=== PATIENT | female | born 1950 | race African-American/Black ===

== ENCOUNTER 2018-11-04 09:08 | Emergency (ER) | payer OTHER ==
[~2018-11-04] VITALS: Ht 172.7 cm; Wt 67.6 kg
[2018-11-04 09:15] VITALS: Ht 172.7 cm; Wt 67.6 kg
[2018-11-04 10:40] VITALS: BP 124/70
[2018-11-04 10:40] LABS: BASOPHIL % 0.6 % (0-2); RED CELL DISTRIBUTION WIDTH 14.3 % (11.5-14.5)
[2018-11-04 10:42] LABS: PLATELET COUNT 129 x10^3mcL (130-400)
[2018-11-04 10:53] LABS: CALCIUM 8.5 mg/dL (8.5-10.1); CARBON DIOXIDE 33.2 mmol/L (21-32); CHLORIDE SERUM 96 mmol/L (98-107); CREATININE SERUM 0.7 mg/dL (0.6-1.0); GFR1 > 60 mL/min; GLUCOSE SERUM 108 mg/dL (74-106); SODIUM SERUM 135 mmol/L (136-145)
[2018-11-04 10:58] LABS: ALBUMIN 3.7 g/dL (3.4-5.0); ALKALINE PHOSPHATASE 80 U/L (46-116); ALT/SGPT 22 U/L (14-59); AST/SGOT 31 U/L (15-37); BILIRUBIN TOTAL 0.66 mg/dL (0.20-1.00); TOTAL PROTEIN, SERUM 7.6 g/dL (6.4-8.2)
== END 2018-11-04 11:56 | disposition home or self-care (01) ==
LOC: EDBD 09:08 → ED 09:08
PROVIDERS: Emergency Medicine
DX: J44.1 Chronic obstructive pulmonary disease with (acute) exacerbation (principal); J40 Bronchitis, not specified as acute or chronic; I10 Essential (primary) hypertension; I48.91 Unspecified atrial fibrillation
CPT/HCPCS: J2930; J7613; J7644; Q0092

== ENCOUNTER 2019-07-02 23:22 | Inpatient (IN) | payer OTHER ==
[~2019-07-02] VITALS: Ht 170.2 cm; Wt 54.4 kg
[2019-07-02 23:28] VITALS: Ht 170.2 cm; Wt 54.4 kg
--- NOTE | 2019-07-03 00:14 | NUR ---
DR WOODY AT BEDSIDE FOR MSE.
--- NOTE | 2019-07-03 00:21 | NUR ---
PT PRESENTS TO THE ED TODAY WITH C/C OF PALPITATIONS X 4-5 HOURS. PT REPORTS THAT SHE WAS AT HOME WHEN SHE BEGAN FEELING LIKE HER "HEART WAS BEATING REAL HARD." PT DENIES ANY CHEST PAIN OR SOB. WHEEZING AUSCULTATED TO BILATERAL LUNGS. PT IS AWAKE AND ALERT, RESP E/U, SPEAKING IN FULL CLEAR SENTENCES, NAD NOTED.
[2019-07-03 00:50] LABS: PLATELET COUNT 143 x10^3mcL (130-400)
[2019-07-03 00:53] LABS: RED CELL DISTRIBUTION WIDTH 14.8 % (11.5-14.5)
[2019-07-03 01:02] LABS: ALBUMIN 3.7 g/dL (3.4-5.0); ALKALINE PHOSPHATASE 71 U/L (46-116); ALT/SGPT 16 U/L (14-59); AST/SGOT 22 U/L (15-37); BILIRUBIN TOTAL 0.63 mg/dL (0.20-1.00); CALCIUM 8.9 mg/dL (8.5-10.1); CARBON DIOXIDE 32.9 mmol/L (21-32); CHLORIDE SERUM 106 mmol/L (98-107); CREATININE SERUM 0.7 mg/dL (0.6-1.0); GFR1 > 60 mL/min; GLUCOSE SERUM 102 mg/dL (74-106); POTASSIUM SERUM 4.5 mmol/L (3.5-5.1); SODIUM SERUM 145 mmol/L (136-145); TOTAL PROTEIN, SERUM 6.8 g/dL (6.4-8.2)
[2019-07-03 01:07] LABS: BAND NEUTROPHIL 4 % (0-10); MONOCYTE 16 % (0-7); SEGMENTED NEUTROPHILS 14 % (37-75); rbc morphology (normal/abnorm) NORMAL (NORMAL)
[2019-07-03 01:08] LABS: PLATELET MORPHOLOGY PLATELETS NORMAL
--- NOTE | 2019-07-03 02:33 | NUR ---
PT. LAYING ON GURNEY IN POSITION OF COMFORT. BREATHING E/U. NOT IN ANY APPARENT DISTRESS. MEDICATED WITH CARDIZIEM PER E-MAR. 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 CALL LIGHT IN REACH. WILL CONTINUE TO MONITOR
[2019-07-03] MEDS ORDERED: CORE25 (02:49)
[2019-07-03 02:50] LABS: CHOLESTEROL/HDL RATIO 2.7
[2019-07-03] MEDS ORDERED: COUMADIN3 MG (02:50)
[2019-07-03] MEDS ORDERED: VERAPAMIL HCL180 M1 (02:50)
[2019-07-03] MEDS ORDERED: COUMADIN7.5 MG (02:50)
[2019-07-03] MEDS ORDERED: BENAZEPRIL HYDR40 M1 (02:50)
[2019-07-03 02:58] LABS: T3 TOTAL 1.35 ng/mL
[2019-07-03 03:02] LABS: FREE T4 1.43 ng/dL (0.76-1.46); FREE THYROXINE INDEX 3.6 ug/dL (1.4-4.5); T4(THYROXINE) 9.6 ug/dL (4.7-13.3)
--- NOTE | 2019-07-03 03:48 | NUR ---
PT. UP TO RESTROOM TO VOID. GAIT STEADY. CALL LIGHT IN REACH. WILL CONTINUE TO MONITOR
--- NOTE | 2019-07-03 03:53 | NUR ---
REPORT GIVEN TO PARI LESTER FOR FURTHER CARE OF PATIENT.
--- NOTE | 2019-07-03 04:10 | NUR ---
PT. TRANSPORTED TO TELE FLOOR VIA WHEELCHAIR. PARI LESTER AT BEDSIDE AND ASSUMED CARE. PT. AAOX4,TALKING AND RESPONDING APPROPRIATELY, BREATHING E/U. NAD. STABLE AT TIME OF TRANSFER
[2019-07-03 04:11] VITALS: BP 136/81
[2019-07-03 04:23] LABS: UA SPECIFIC GRAVITY <=1.005 (1.005-1.035); microscopic required? YES; urine erythrocyte NEGATIVE (NEGATIVE)
[2019-07-03 04:29] LABS: AMPHETAMINE QUAL UR NONE DETECTED (See below)
--- NOTE | 2019-07-03 04:51 | NUR ---
PEDRO BECK A 69 Y/O FEMALE PATIENT FROM ED VIA ERNEY ACCOMPANIED BY ER STAFFS WITH THE CHEIF COMPLAINTS OF PALPITATION, DENEIS ANY CHEST PAIN. PLACED CPMFORTABLY IN BED. VITAL SIGMS TAKEN AND RECORDED. PLACED ON TELE ^ 14 WITH AFIB AT 77/MIN. SKIN CLEAN AND INTACT. NOTED TO HAVE TRACED PITTING EDEMA ON BLE. WAS GIVEN LASIX 40MG AT ER. AMBULATED TO BATHROOM FOR BLADDER ELIMINATION. KEPT CLEAN AND DRY. CALL LIGHT WITHIN REACH.
--- NOTE | 2019-07-03 06:46 | NUR ---
DENIES ANY PAIN/DISCOMFORT. AMBULATED TO ABTHROOM WITH FAU=IR STEADY GAIT. ALL NEEDS ATTENDED.
--- NOTE | 2019-07-03 07:15 | NUR ---
RECEIVED BEDSIDE REPORT. PATIENT SITTING UP IN BED RESTING COMFORTABLY A/O X4, CLEAR SPEECH, NO NEURO DEFICITS NOTED. TELE # [address], DENIES CHEST PAIN OR PALPITATIONS, ADMITTED FOR AFIB PENDING CONSULT WITH DR. SOTELO. BREATHING EVEN AND UNLABBORED ON ROOM AIR, DENIES SOB, NO DISTRESS NOTED. DENIES ANY PAIN. IV TO LAC H/L INTACT AND PATENT FREE FROM REDNESS AND INFILTRATION. PATIENT IS CALM WITH CARE. INSTRUCTED TO CALL FOR ASSISTANCE IF NEEDED. SAFETY PRECAUTIONS MAINTAINED. WILL MONITOR.
[2019-07-03 08:07] LABS: PLATELET COUNT 160 x10^3mcL (130-400)
[2019-07-03 08:19] LABS: CALCIUM 8.6 mg/dL (8.5-10.1); CARBON DIOXIDE 31.8 mmol/L (21-32); CHLORIDE SERUM 105 mmol/L (98-107); CREATININE SERUM 0.6 mg/dL (0.6-1.0); GFR1 > 60 mL/min; GLUCOSE SERUM 163 mg/dL (74-106); MAGNESIUM 1.7 mg/dL (1.8-2.4); PHOSPHOROUS 3.4 mg/dL (2.5-4.9); POTASSIUM SERUM 3.9 mmol/L (3.5-5.1); SODIUM SERUM 144 mmol/L (136-145)
[2019-07-03 08:25] LABS: RED CELL DISTRIBUTION WIDTH 14.7 % (11.5-14.5)
[2019-07-03 08:46] LABS: ATYPICAL LYMPH 0 %; BAND NEUTROPHIL 0 % (0-10); BASOPHIL 0 % (0-2); MONOCYTE 10 % (0-7); SEGMENTED NEUTROPHILS 26 % (37-75); rbc morphology (normal/abnorm) NORMAL (NORMAL)
[2019-07-03 09:14] VITALS: BP 121/78
--- NOTE | 2019-07-03 09:55 | NUR ---
ROUNDS MADE- DR. MITCHELL, RESIDENT TEAM, CHARGE NURSE AND PRIMARY NURSE AT BEDSIDE. POC REVIEWED WITH PATIENT- PATIENT AWARE SHE WAS ADMITTED FOR AFIB, HOME MED VERAPAMIL ADJUSTED, PATIENT TO BE SEEN BY WIRE WEAVER. REVIEWED CHEST XRAY RESULTS W/PATIENT, BASED ON FINDINGS PATIENT WILL HAVE A CT CHEST DONE TODAY. WBC ARE LOW 1.2, PT INSTRUCTED TO FOLLOW UP WITH PCP OUTPATIENT. PATIENT VERBALIZED UNDERSTANDING, ALL QUESTIONS AND CONCERNS ADDRESSED. SAFETY PRECAUTIONS MAINTAINED. WILL MONITOR. DR. NIELSON AWARE OF INR 2.7, AND STATED OKAY FOR PATIENT TO HAVE DOSE OF COUMADIN 7.5 MG TODAY AT 1700, PHARMACIST AWARE.
--- NOTE | 2019-07-03 10:02 | NUR ---
PATIENT TAKEN DOWN TO CT VIA WHEELCHAIR.
--- NOTE | 2019-07-03 10:15 | NUR ---
RECEIVED PATIENT BACK FROM CT VIA WHEELCHAIR. PATIENT MADE COMFORTABLE IN BED, TELE #14 APPLIED. ALL NEEDS ATTENDED TO, SAFETY PRECAUTIONS MAINTAINED. WILL MONITOR.
--- NOTE | 2019-07-03 12:25 | NUR ---
JAVA SWING DEVELOPER AT BEDSIDE.
--- NOTE | 2019-07-03 13:40 | NUR ---
PATIENT RESTING IN BED COMFORTABLY WATCHING TELEVISON, NO DISTRESS NOTED. ALL NEEDS ATTENDED TO, SAFETY PRECAUTIONS MAINTAINED. WILL MONITOR.
[2019-07-03 13:53] VITALS: BP 114/80
--- NOTE | 2019-07-03 14:14 | NUR ---
DR. NIELSON MADE AWARE OF UA RESULTS. NO NEW ORDERS RECEIVED. WILL MONITOR.
--- NOTE | 2019-07-03 16:30 | NUR ---
PATIENT SEEN AMBULATING TO RESTROOM, GAIT SLOW AND STEADY NO DISTRESS NOTED. ALL NEEDS ATTENDED TO, SAFETY PRECAUTIONS MAINTAINED. WILL MONITOR.
[2019-07-03 17:03] VITALS: BP 142/76
--- NOTE | 2019-07-03 17:53 | NUR ---
PATIENT RESTING IN BED COMFORTABLY NO DISTRESS NOTED. PATIENT GIVEN LOTENSIN 40 MG PO NOW FOR BP 142/76, PATIENT ALSO STATED AT HOME SHE TAKES MEDICATION AT 2100 AND IS OKAY TO TAKE NOW. ALL NEEDS ATTENDED TO, SAFETY PRECAUTIONS MAINTAINED. WILL MONITOR.
--- NOTE | 2019-07-03 18:43 | NUR ---
DR MENDOZA NOTIFIED THAT PATIENT'S HR IS LOW 43-44. DR MENDOZA SAID THAT HE WILL ORDER STAT EKG. ATTENDING NURSE PORFIRIO MADE AWARE.
--- NOTE | 2019-07-03 19:05 | NUR ---
REPORT GIVEN TO YOVANI LESTER, ALL QUESTIONS AND CONCERNS ADDRESSED. ALL CARES ENDORSED.
--- NOTE | 2019-07-03 19:30 | NUR ---
PT RECIEVED FROM DAY NURSE. PT RESTING IN BED COMFORTABLY AT THIS TIME. DENIES PAIN AT THIS TIME. A/O X4, CALM AND COOPERATIVE AT THIS TIME. TELE 14, AFIB. DENIES CP, NV, DIZZINESS, OR PALPATATIONS AT THIS TIME. PALPABLE PULSES, NO EDEMA NOTED. BREATHING E/U AT THIS TIME. DENEIS SOB. ABD SOFT AND ROUND, DENIES PAIN TO PALPATIONS. AMBULATORY AT BASELINE. IV TO LAC INTACT AND SALINE LOCKED. ALL QUESTIONS AND CONCERNED ADDRESSED. BED AT LOWEST POSITION. CALL LIGHT WITHIN REACH. WILL CONTINUE TO MONITOR.
[2019-07-03 21:14] VITALS: BP 92/61
--- NOTE | 2019-07-04 00:06 | NUR ---
PT RESTING IN BED AT THIS TIME. NO S/S OF PAIN NOTED. BREATHING E/U ON RA. NO SIGNS OF ACUTE DISTRESS NOTED AT THIS TIME. BED AT LOWEST POSITION. CALL LIGHT WITHIN REACH. WILL CONTINUE TO MONITOR.
[2019-07-04 05:21] VITALS: BP 115/86
--- NOTE | 2019-07-04 05:56 | NUR ---
PT RESTING IN BED AT THIS TIME. NO S/S OF PAIN OR DISCOMFORT. BREATHING E/U ON RA. NO ACUTE EVENTS THIS SHIFT. ALL NEEDS ADDRESSED. BED AT LOWEST POSITION. CALL LIGHT WITHIN REACH. WILL ENDORSE TO DAY NURSE.
[2019-07-04 06:26] LABS: CALCIUM 8.5 mg/dL (8.5-10.1); CARBON DIOXIDE 36.3 mmol/L (21-32); CHLORIDE SERUM 102 mmol/L (98-107); CREATININE SERUM 0.7 mg/dL (0.6-1.0); GFR1 > 60 mL/min; GLUCOSE SERUM 110 mg/dL (74-106); MAGNESIUM 1.8 mg/dL (1.8-2.4); PHOSPHOROUS 4.3 mg/dL (2.5-4.9); POTASSIUM SERUM 3.8 mmol/L (3.5-5.1); SODIUM SERUM 141 mmol/L (136-145)
--- NOTE | 2019-07-04 07:41 | NUR ---
HANDOFF REPORT RECEIVED FROM TREVON FERNANDO. PATIENT AWAKE HAVING BREAKFAST. DENIES ANY CHEST PALPITATION OR SOB. " WHAT TIME IS DISCHARGE?" SHE STATED. INSTRUCTED TO CALL RN FOR ANY NEED AND MD WILL HAVE TO RE EVALUATE HER.
[2019-07-04 07:59] LABS: BASOPHIL % 0.3 % (0-2); PLATELET COUNT 159 x10^3mcL (130-400); RED CELL DISTRIBUTION WIDTH 14.6 % (11.5-14.5)
[2019-07-04 08:59] VITALS: BP 100/65
[2019-07-04 10:13] VITALS: BP 94/65
[2019-07-04 11:58] VITALS: BP 108/72
--- NOTE | 2019-07-04 12:01 | NUR ---
COURTNEY BONE MADE AWARE OF LOW HR LAST NIGHT (NOW 70-90 AFIB). VERAPAMIL HELD FOR NOW TILL MD SOTELO ARRIVES.
--- NOTE | 2019-07-04 14:01 | NUR ---
MD SOTELO WAS HERE AND CLEARED PATIENT FOR DISCHARGE. PRIMARY TEAM (LIZANDRO) MADE AWARE OF CLEARANCE BUT WILL DISCHARGE PATIENT TOMORROW. PATIENT EXPRESSED DESIRE TO GO HOME AND POSSIBLY AMA. MD SOTELO AWARE.
--- NOTE | 2019-07-04 14:43 | NUR ---
PATIENT DECIDED TO STAY TILL TOMORROW.
--- NOTE | 2019-07-04 16:13 | NUR ---
NO COMPLAINTS. WATCHING TV AT THIS TIME.
--- NOTE | 2019-07-04 17:36 | NUR ---
COUMADIN 3.75 PO GIVEN FOR INR 2.6. HAVING DINNER AT THIS TIME.
[2019-07-04 18:00] VITALS: BP 92/58
--- NOTE | 2019-07-04 19:15 | NUR ---
RECEIVED PT SITTING AT THE EDGE OF THE BED RESTING. NO DISTRESS NOTED.DENIES ANY PAIN/ PRESSURE AT THIS TIME. IV SITE PATENT AND INTACT. FAMILY AT BEDSIDE. BED IN LOWEST POSITION,CALL LIGHT WITHIN REACH. WILL CONTINUE TO MONITOR.
--- NOTE | 2019-07-04 19:20 | NUR ---
HANDOFF REPORT GIVEN TO TREVON MCCAIN.
[2019-07-04 21:08] VITALS: BP 92/55
--- NOTE | 2019-07-05 05:19 | NUR ---
PT REMAINED ASLEEP. NO SOB NOTED. DENIES ANY PAIN AT THIS TIME. BED IN LOWEST POSITION,CALL LIGHT WITHIN REACH. WILL CONTINUE TO MONITOR.
[2019-07-05 05:53] VITALS: BP 101/63
[2019-07-05 06:37] LABS: BASOPHIL % 1.1 % (0-2); PLATELET COUNT 149 x10^3mcL (130-400)
[2019-07-05 06:52] LABS: RED CELL DISTRIBUTION WIDTH 15.4 % (11.5-14.5)
[2019-07-05 07:00] LABS: CALCIUM 8.2 mg/dL (8.5-10.1); CARBON DIOXIDE 36.2 mmol/L (21-32); CHLORIDE SERUM 104 mmol/L (98-107); CREATININE SERUM 0.7 mg/dL (0.6-1.0); GFR1 > 60 mL/min; GLUCOSE SERUM 81 mg/dL (74-106); POTASSIUM SERUM 3.8 mmol/L (3.5-5.1); SODIUM SERUM 145 mmol/L (136-145)
--- NOTE | 2019-07-05 07:15 | NUR ---
SEEN IN BED AAOX4. DENIES DISCOMFORT AT THIS TIME. BREATHING E/U ON ROOM AIR. S/L TO LAC INTACT AND PATENT. PLAN OF CARE DISCUSSED. VERBALIZED UNDERSTANDING. CALL LIGHT PLACED WITHIN EASY REACH. SIDERAILS UP X2.
--- NOTE | 2019-07-05 07:33 | NUR ---
CARE ENDORSED TO DAY NURSE SUPIN.
[2019-07-05 09:04] VITALS: BP 102/55
--- NOTE | 2019-07-05 09:10 | NUR ---
AM SCHEDULED MEDS GIVEN. BLOOD PRESSURE MEDS HELD DUE TO BP ON THE LOW SIDE (BP 102/55, HR 69). PATIENT MADE AWARE.
[2019-07-05] MEDS ORDERED: VERAPAMIL HCL240 M1 PO (10:05)
[2019-07-05 11:01] VITALS: BP 102/55
--- NOTE | 2019-07-05 11:40 | NUR ---
DISCHARGE INSTRUCTION AND PRESCRIPTION GIVEN TO PATIENT WHO IS AWAKE, ALERT, ORIENTED X4. S/L TO LAC REMOVED WITH CATHETER INTACT, DRSG APPLIED. DENIES CHEST PAIN OR DISCOMFORT AT THIS TIME. SPOUSE AT BEDSIDE.
== END 2019-07-05 11:44 | disposition home or self-care (01) | DRG 309 ==
LOC: ED 23:22 → DU 07-03 02:07 → MU 07-03 02:07 → DU 07-03 04:09 → MU 07-04 12:55
PROVIDERS: Emergency Medicine; ADMIT Internal Medicine
DX: I48.2 Chronic atrial fibrillation (principal); J44.1 Chronic obstructive pulmonary disease with (acute) exacerbation; Z68.1 Body mass index [BMI] 19.9 or less, adult; D72.819 Decreased white blood cell count, unspecified; I11.0 Hypertensive heart disease with heart failure; I50.9 Heart failure, unspecified; E78.5 Hyperlipidemia, unspecified; E03.9 Hypothyroidism, unspecified; Z79.01 Long term (current) use of anticoagulants
CPT/HCPCS: 83880; 84439; G0378; J1940; J2930; J3490

== ENCOUNTER 2019-10-30 09:43 | Emergency (ER) | payer OTHER ==
[~2019-10-30] VITALS: Ht 172.7 cm; Wt 63.1 kg
[~2019-10-30 09:43] MED LIST: BENAZEPRIL HYDR40 M1; CORE25; COUMADIN3 MG; COUMADIN7.5 MG; VERAPAMIL HCL180 M1; VERAPAMIL HCL240 M1 PO
[2019-10-30 09:48] VITALS: Ht 172.7 cm; Wt 63.1 kg
[2019-10-30 13:24] VITALS: BP 131/84
== END 2019-10-30 13:51 | disposition home or self-care (01) ==
LOC: ED 09:43
DX: J45.909 Unspecified asthma, uncomplicated (principal); I48.91 Unspecified atrial fibrillation; I10 Essential (primary) hypertension; Z90.710 Acquired absence of both cervix and uterus
CPT/HCPCS: J7512; J7613; J7644

== ENCOUNTER 2020-09-02 02:54 | Emergency (ER) | payer OTHER ==
[~2020-09-02] VITALS: Ht 172.7 cm; Wt 62.6 kg
[2020-09-02 03:05] VITALS: Ht 172.7 cm; Wt 62.6 kg
[2020-09-02 04:03] LABS: BASOPHIL % 0.5 % (0-2); PLATELET COUNT 136 x10^3mcL (130-400)
[2020-09-02 04:04] LABS: RED CELL DISTRIBUTION WIDTH 14.6 % (11.5-14.5)
[2020-09-02 04:22] LABS: CALCIUM 8.7 mg/dL (8.5-10.1); CARBON DIOXIDE 33.2 mmol/L (21-32); CHLORIDE SERUM 104 mmol/L (98-107); CREATININE SERUM 0.7 mg/dL (0.6-1.0); GFR1 > 60 mL/min; GLUCOSE SERUM 92 mg/dL (74-106); POTASSIUM SERUM 3.7 mmol/L (3.5-5.1); SODIUM SERUM 141 mmol/L (136-145)
[2020-09-02 04:38] LABS: ALBUMIN 3.8 g/dL (3.4-5.0); ALKALINE PHOSPHATASE 76 U/L (46-116); ALT/SGPT 31 U/L (14-59); AST/SGOT 31 U/L (15-37); FREE T4 1.46 ng/dL (0.76-1.46); TOTAL PROTEIN, SERUM 7.4 g/dL (6.4-8.2)
[2020-09-02 06:52] VITALS: BP 142/85
== END 2020-09-02 06:52 | disposition home or self-care (01) ==
LOC: ED 02:54
PROVIDERS: Emergency Medicine
DX: I48.91 Unspecified atrial fibrillation (principal); J44.9 Chronic obstructive pulmonary disease, unspecified; I10 Essential (primary) hypertension
CPT/HCPCS: 83880; 84439; Q0092